=== PATIENT | female | born 1975 ===

== ENCOUNTER 2018-10-23 16:17 | Emergency (ER) | payer OTHER ==
[~2018-10-23] VITALS: Ht 165.1 cm; Wt 81.6 kg
[2018-10-23] MEDS ORDERED: ADDERALL 30 MG30 MG (16:49)
== END 2018-10-24 00:09 | disposition home or self-care (01) ==
LOC: ER 16:17
DX: R07.89 Other chest pain (principal); R00.2 Palpitations